=== PATIENT | female | born 2000 | race Caucasian/White ===

== ENCOUNTER 2022-03-27 13:17 | Emergency (ER) | payer OTHER ==
[~2022-03-27] VITALS: Ht 157.5 cm; Wt 53.5 kg
[~2022-03-27 13:17] MED LIST: [UNRECOGNIZED DRUG - OTHER] EACH EAR; [UNRECOGNIZED DRUG - OTHER] PO
[2022-03-27] MEDS ORDERED: TRAZODONE HCL50 MG PO (14:27)
== END 2022-03-27 14:31 | disposition home or self-care (01) ==
LOC: FSED 13:20
DX: F41.9 Anxiety disorder, unspecified (principal); F32.A Depression, unspecified
CPT/HCPCS: 99283